=== PATIENT | male | born 1940 | race Caucasian/White ===

== ENCOUNTER 2020-03-07 12:25 | Outpatient (CLI) | payer MEDICARE, SELFPAY ==
--- NOTE | ~2020-03-07 | XR_ITS ---
XR hip RT min 2V DATE: 03/07/2020 13:28 INDICATION: Right hip pain TECHNIQUE: AP, lateral, crosstable lateral views of right hip COMPARISON: None FINDINGS: Diffuse osteopenia. No fracture, dislocation, avascular necrosis or bone destruction of the right hip. Right hip joint space appears well preserved. Normal alignment at the right sacroiliac joint and pubic symphysis. There is prominent calcification of the iliac and femoral arteries. IMPRESSION: Osteopenia Reviewed, dictated and finalized at location A. IMPRESSION: Osteopenia
--- NOTE | ~2020-03-07 | XR_ITS ---
XR lumbar spine 2-3V DATE: 03/07/2020 13:28 INDICATION: Back pain. Right hip pain. No known injury. TECHNIQUE: AP, lateral, coned lateral lumbosacral views COMPARISON: 09/10/2012 lumbar spine FINDINGS: There is approximately 23 degrees rotatory dextroscoliosis measured from L2 to L5. There is severe degenerative disc disease at L1-2, L2-3, L3-4. Moderate diffuse osteopenia. No fracture or bone destruction is evident. The lumbar and included lower thoracic pedicles are intac t. The sacroiliac joints appear normal. There is extensive calcification of the abdominal aorta and iliac arteries, without evidence of aneur ysm. IMPRESSION: Rotatory dextroscoliosis and multilevel degenerative disc disease Reviewed, dictated and finalized at location A.
== END 2020-03-07 12:26 | disposition home or self-care (01) ==
PROVIDERS: PCP Family Medicine; Visit Provider Physician Assistant
DX: M54.9 Dorsalgia, unspecified (principal); M85.88 Other specified disorders of bone density and structure, other site; M41.86 Other forms of scoliosis, lumbar region; M51.9 Unspecified thoracic, thoracolumbar and lumbosacral intervertebral disc disorder
CPT/HCPCS: 72100; 73502

== ENCOUNTER → 2022-02-12 15:15 | Outpatient (CLI) | payer MEDICARE, SELFPAY ==
--- NOTE | ~2022-02-12 | XR_ITS ---
EXAMINATION: XR chest 2V DATE: 02/12/2022 15:32 INDICATION: Abnormal weight loss. TECHNIQUE: Frontal and lateral views of the chest were obtained. COMPARISON: Chest 2 views 04/12/2009 FINDINGS: The lungs are hyperexpanded, consistent with chronic obstructive pulmonary disease. There i s stable mild scarring at the lung apices. No pleural effusion or pneumothorax. The heart size is nor mal. 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 IMPRESSION: 1. Stable mild scarring at the lung apices. 2. Hyperexpanded lungs, consistent with chronic obstructive pulmonary disease. Reviewed, dictated and finalized at location A.
== END ==
PROVIDERS: PCP Physician Assistant; Visit Provider Physician Assistant
DX: R63.4 Abnormal weight loss (principal); R91.8 Other nonspecific abnormal finding of lung field
CPT/HCPCS: 71046

== ENCOUNTER 2023-03-22 10:36 | Outpatient (CLI) | payer MEDICARE, SELFPAY ==
[2023-03-22 15:13] LABS: Alanine Aminotransferase 18 U/L (6-50); Albumin Level 3.7 g/dL (3.5-5.1); Alkaline Phosphatase 80 U/L (38-126); Anion Gap 5 mmol/L (8-16); Aspartate Amino Transferase 37 U/L (17-59); Bilirubin,Total 0.8 mg/dL (0.2-1.3); Blood Urea Nitrogen 26 mg/dL (9-20); Calcium 8.6 mg/dL (8.4-10.2); Carbon Dioxide 27 mmol/L (22-30); Chloride 109 mmol/L (98-107); Cholesterol 219 mg/dL (0-200); Estimated Glomerular Filt Rate > 60; Glucose 102 mg/dL (65-110); HDL Direct 49 mg/dL; Potassium 3.6 mmol/L (3.4-5.0); Sodium 141 mmol/L (137-145); Triglycerides 113 mg/dL (<150)
[2023-03-22 15:22] LABS: Basophils Absolute Auto 0.1 K/mm3 (0.0-0.1); Basophils Percent Auto 1.2 % (0.2-1.2); Eosinophils Absolute Auto 0.2 K/mm3 (0-0.3); Eosinophils Percent Auto 2.2 % (0-4.4); Hematocrit 42.3 % (42.0-52.0); Hemoglobin 13.3 g/dL (14.0-18.0); Immature Granulocyte Absolute 0.03 K/mm3 (0.00-0.031); Immature Granulocyte Percent A 0.4 % (0-0.5); Lymphocytes Absolute Auto 1.95 K/mm3 (0.9-3.2); Mean Corpuscular HGB Conc 31.4 g/dl (32-36); Mean Corpuscular Hemoglobin 30.4 pg (26-34); Mean Corpuscular Volume 96.8 fl (80-100); Mean Platelet Volume 12.5 fl (7.4-10.4); Monocytes Absolute Auto 0.8 K/mm3 (0.1-0.6); Monocytes Percent Auto 9.4 % (2.6-8.5); Neutrophils Absolute Auto 5.1 K/mm3 (1.3-6.7); Neutrophils Percent Auto 62.8 % (45.5-73.1); Platelet Count Result 154 k/mm3 (150-375); Red Blood Count 4.37 M/mm3 (4.6-6.20); Red Cell Distribution Width 13.9 % (11.5-14.5); White Blood Count 8.1 K/mm3 (4.5-10.0)
[2023-03-22 16:02] LABS: LDL Cholesterol Direct 139 mg/dL
[2023-03-22 16:52] LABS: Folic Acid > 20.0 ng/mL (2.76->20)
== END 2023-03-22 10:37 | disposition home or self-care (01) ==
LOC: ANHGOSHLAB 10:38
PROVIDERS: PCP Emergency Medicine; Visit Provider Emergency Medicine
DX: E78.2 Mixed hyperlipidemia (principal); R41.3 Other amnesia; Z79.899 Other long term (current) drug therapy
CPT/HCPCS: 36415; 80053; 80061; 82607; 82746; 84443; 85025

== ENCOUNTER 2023-03-31 12:58 | Outpatient (CLI) | payer MEDICARE, SELFPAY ==
--- NOTE | ~2023-03-31 | MR_ITS ---
EXAMINATION: MR brain/brain stem wo con DATE: 03/31/2023 13:44 INDICATION: Other amnesia. Parkinson's disease. TECHNIQUE: Magnetic resonance imaging (MRI) of the brain and brainstem was performed without intraven ous contrast. COMPARISON: None. FINDINGS: There are scattered areas of nonspecific increased T2-weighted signal intensity in the cere bral white matter. There is a small old infarct in right cerebellum. There is a 13 mm extra-axial mas s overlying right frontal lobe. There is no acute ischemic infarct or intracranial hemorrhage. The ve ntricles are normal in size. There is mucosal thickening in the paranasal sinuses. There are likely c hanges of ocular lens replacement surgeries. The mastoid air cells are normal. IMPRESSION: 1. Small old infarct in right cerebellum. 2. 13 mm extra-axial mass overlying right frontal lobe, consistent with a meningioma. 3. Extensive nonspecific cerebral white matter disease, which likely represents chronic small vessel ischemic disease. Reviewed, dictated and finalized at location E. IMPRESSION: 1. Small old infarct in right cerebellum. 2. 13 mm extra-axial mass overlying right frontal lobe, consistent with a menin gioma. 3. Extensive nonspecific cerebral white matter disease, which likely represents chronic small vessel ischemic disease.
== END 2023-03-31 12:59 | disposition home or self-care (01) ==
PROVIDERS: PCP Emergency Medicine; Visit Provider Student in an Organized Health Care Education/Training Program
DX: R90.82 White matter disease, unspecified (principal); G93.89 Other specified disorders of brain; I63.541 Cerebral infarction due to unspecified occlusion or stenosis of right cerebellar artery; R41.3 Other amnesia
CPT/HCPCS: 70551